=== PATIENT | female | born 1975 | race African-American/Black ===

== ENCOUNTER 2018-09-08 10:08 | Inpatient (IN) | payer OTHER ==
[2018-09-08 10:15] VITALS: BMI 24.9
--- NOTE | 2018-09-08 12:55 | HP ---
CIWA Score Nausea/Vomitin Muscle Tremors: 2 Anxiety: 2 Agitation: 2 Paroxysmal Sweats: 1-Minimal Palms Moist Orientation: 0-Oriented Tacttile Disturbances: 1-Very Mild Itch/Numbness Auditory Disturbances: 1-Very Mild Visual Disturbances: 1-Very Mild Sensitivity Headache: 2-Mild CIWA-Ar Total Score: 14 - Admission Criteria OASAS Guidelines: Admission for Medically Managed Detox: Requires at least one of the followin. CIWA greater than 12 2. Seizures within the past 24 hours 3. Delirium tremens within the past 24 hours 4. Hallucinations within the past 24 hours 5. Acute intervention needed for co occurring medical disorder 6. Acute intervention needed for co occurring psychiatric disorder 7. Severe withdrawal that cannot be handled at a lower level of care (continued vomiting, continued diarrhea, abnormal vital signs) requiring intravenous medication and/or fluids 8. Patient presents the following: CIWA greater than 12 Admission Criteria Met: Admission criteria met Admission ROS BHS - HPI Chief Complaint: i need help to stop drinking alcohol Allergies/Adverse Reactions: Allergies Allergy/AdvReac Type Severity Reaction Status Date / Time No Known Allergies Allergy Verified 09/08/18 11:40 History of Present Illness: this 42 years old female with alcohol dependence,seeking detox,seen in [place] last night last detox 01/10/17 to 01/14/18 syncope alcohol related nicotine dependence bipolar disorder ,schizoaffective disorder longest sobriety 7 months Exam Limitations: No Limitations - Ebola screening Have you traveled outside of the country in the last 21 days: No Have you had contact with anyone from an Ebola affected area: No Have you been sick,other than usual withdrawal symptoms: No - Review of Systems Constitutional: Loss of Appetite, Malaise, Night Sweats, Changes in sleep, Weakness EENT: reports: Nose Congestion Respiratory: reports: No Symptoms reported Cardiac: reports: No Symptoms Reported GI: reports: Nausea, Vomiting, Abdominal cramping : reports: No Symptoms Reported Musculoskeletal: reports: Back Pain, Muscle Pain Integumentary: reports: Dryness Neuro: reports: Headache, Tremors Endocrine: reports: No Symptoms Reported Hematology: reports: No Symptoms Reported Psychiatric: reports: No Sypmtoms Reported, Judgement Intact, Mood/Affect Appropiate, Orientated x3 (bipolar disorder) Patient History - Patient Medical History Hx Anemia: No Hx Asthma: No Hx Chronic Obstructive Pulmonary Disease (COPD): No Hx Cancer: No Hx Cardiac Disorders: No Hx Congestive Heart Failure: No Hx Hypertension: No Hx Hypercholesterolemia: No Hx Pacemaker: No HX Cerebrovascular Accident: No Hx Seizures: No Hx Dementia: No Hx Diabetes: No Hx Gastrointestinal Disorders: No Hx Liver Disease: No Hx Genitourinary Disorders: No Hx Sexually Transmitted Disorders: No Hx Renal Disease (ESRD): No Hx Thyroid Disease: No Hx Human Immunodeficiency Virus (HIV): No Hx Hepatitis C: No Hx Depression: Yes Hx Suicide Attempt: Yes (Jumped out of [place] when "young") Hx Bipolar Disorder: Yes (schizo-affective) Hx Schizophrenia: Yes (?) Other Medical History: no sucidal,no homicidal - Patient Surgical History Past Surgical History: No Hx Neurologic Surgery: No Hx Cataract Extraction: No Hx Cardiac Surgery: No Hx Lung Surgery: No Hx Breast Surgery: No Hx Breast Biopsy: No Hx Abdominal Surgery: Yes (s/p lap gastric by pass in 2005) Hx Appendectomy: No Hx Cholecystectomy: No Hx Genitourinary Surgery: No Hx Section: Yes (in 2006) Hx Orthopedic Surgery: No Anesthesia Reaction: No - PPD History Previous Implant?: Yes Documented Results: Negative w/o proof Implanted On Prior [facility] Admission?: Yes Date: 09/14/16 Results: 0 mm PPD to be Administered?: Yes - Reproductive History Last Menstrual Period: 08/15/18 Patient : No - Smoking Cessation Smoking history: Current every day smoker Have you smoked in the past 12 months: Yes Aproximately how many cigarettes per day: 6 Cigars Per Day: 0 Hx Chewing Tobacco Use: No Initiated information on smoking cessation: Yes 'Breaking Loose' booklet given: 09/08/18 - Substance & Tx. History Hx Alcohol Use: Yes Hx Substance Use: Yes Substance Use Type: Alcohol, Cocaine Hx Substance Use Treatment: Yes ([facility] 01/10/17 to 01/14/17) - Substances Abused Alcohol Route: Oral Frequency: Daily Amount used: 1 pint Age of first use: 33 Date of Last Use: 09/07/18 Cocaine Route: Smoking Frequency: 1-3 times last 30 days Amount used: $100 Age of first use: 42 Date of Last Use: 09/01/18 Family Disease History - Family Disease History Family Disease History: Diabetes: Grandparent (HTN), Heart Disease: Grandparent , Mother (compulsive gambler,HTN), Sister (DRUG AND ALCOHOL,HTN), Other: Father (DRUG AND ALCOHOL,), Mother, Sister Admission Physical Exam [facility] - Vital Signs Vital Signs: Vital Signs - 24 hr 09/08/18 10:12 Temperature 97.0 F L Pulse Rate 124 H Respiratory 19 Rate Blood Pressure 104/56 L - Physical General Appearance: Yes: Moderate Distress, Tremorous, Irritable, Sweating, Anxious HEENTM: Yes: Hearing grossly Normal, Normal ENT Inspection, TAMMY, Pharynx Normal Respiratory: Yes: Lungs Clear, Normal Breath Sounds, No Respiratory Distress Neck: Yes: Within Normal Limits, Supple, Trachea in good position Breast: Yes: Within Normal Limits Cardiology: Yes: Within Normal Limits, Regular Rhythm, Regular Rate, S1, S2 Abdominal: Yes: Within Normal Limits, Normal Bowel Sounds, Non Tender, Soft Genitourinary: Yes: Within Normal Limits Back: Yes: Muscle Spasm Musculoskeletal: Yes: Back pain, Joint Stiffness, Muscle Pain Extremities: Yes: Tremors Neurological: Yes: orthopedic nurse II-XII NML intact, Alert, Motor Strength 5/5 Integumentary: Yes: Dry Lymphatic: Yes: Within Normal Limits - Diagnostic (1) Syncope Current Visit: No Status: Acute (2) Alcohol dependence with uncomplicated withdrawal Current Visit: No Status: Chronic (3) S/P gastric bypass Current Visit: No Status: Chronic (4) Schizophrenia Current Visit: No Status: Chronic Qualifiers: Cleared for Admission [facility] - Detox or Rehab [facility] Level of Care: Medically Managed Detox Regimen/Protocol: Librium [facility] Breath Alcohol Content Breath Alcohol Content: 0 Urine Pregancy Test - Result Urine Test Results: Negative- NO Line Present Urine Drug Screen - Results Drug Screen Negative: No Urine Drug Screen Results: GIO-Cocaine, BZO-Benzodiazepines
[2018-09-08] MEDS ORDERED: chlordiazePOXIDE HCL 25 MG CAPSULE PO PRN (14:22)
[2018-09-08] MEDS ORDERED: ACETAMINOPHEN 325 MG TABLET (FP) PO PRN (14:22)
[2018-09-08] MEDS ORDERED: LOPERAMIDE HCL 2 MG CAPSULE PO PRN (14:22)
[2018-09-08] MEDS ORDERED: guaiFENesin/D-METHORPHAN HB 10 ML UNIT-DOSE CUPS PO PRN (14:22)
[2018-09-08] MEDS ORDERED: P-EPHED 60MG/TRIPROLIDI 2.5MG TABLET PO PRN (14:22)
[2018-09-08] MEDS ORDERED: MENTHOL/PHENOL 1 EACH UD MM PRN (14:22)
[2018-09-08] MEDS ORDERED: MAG HYDROX/AL HYDROX/SIMETH 30 ML UNIT-DOSE CUP PO PRN (14:22)
[2018-09-08] MEDS ORDERED: IBUPROFEN 400 MG TABLET (FP) PO PRN (14:22)
[2018-09-08] MEDS ORDERED: MAGNESIUM CITRATE 300 ML BOTTLE PO PRN (14:22)
[2018-09-08] MEDS ORDERED: MAGNESIUM HYDROX 2400MG/30ML ORAL SUSPENSION 30 ML CUP PO PRN (14:22)
--- NOTE | 2018-09-08 14:32 | CONSULT ---
[facility] Psychiatric Consult - Data Date of interview: 09/08/18 Admission source: [facility] Identifying data: This is a 42 years old female, single, mother of one, domiciled, on SSD support, with history of Schizophrenia, psychiatroc hospitalization history,, with alcoho, Cocaine, Opioids dependence,seeking detox,reporoting withdrawal history, [place] for [place].Reports last detox on 01/10/17 to 01/14/18 Substance Abuse History: Smoking history: Current every day smoker. Have you smoked in the past 12 months: Yes. Aproximately how many cigarettes per day: 6. Cigars Per Day: 0. Hx Chewing Tobacco Use: No. Initiated information on smoking cessation: Yes. 'Breaking Loose' booklet given: 09/08/18. - Substance & Tx. History. Hx Alcohol Use: Yes. Hx Substance Use: Yes. Substance Use Type : Alcohol, Cocaine. Hx Substance Use Treatment: Yes ([facility] 01/10/17 to 01/14/17) . - Substances Abused. Alcohol. Route: Oral. Frequency: Daily. Amount used: 1 pint. Age of first use: 33. Date of Last Use: 09/07/18. Cocaine. Route: Smoking. Frequency: 1-3 times last 30 days. Amount used: $100. Age of first use: 42. Date of Last Use: 09/01/18 Medical History: Syncope, Gastric bypass history, Psychiatric History: Patient reports history of Schizophrenia, reports most recent psychiatric admission at [facility] month ago for safety, reports taking prior to admission: Seroqiel 100mg poqd, 200mg po qhs. Trazodone 150mg po qhs. As per computer has a history of suicidal attempt, [place] on about 25-30 years ago, denies suicidal ,homicidal ideation at this time. Physical/Sexual Abuse/Trauma History: Denies Additional Comment: Seroqiel 100mg poqd, 200mg po qhs. Trazodone 150mg po qhs Mental Status Exam - Mental Status Exam Alert and Oriented to: Person Cognitive Function: Impaired Patient Appearance: Unkempt Mood: Suspicious Affect: Flat, Constricted Patient Behavior: Cooperative Speech Pattern: Delayed Voice Loudness: Mildly Soft/Quiet Thought Process: Circumstantial Thought Disorder: Being Controlled Hallucinations: Denies Suicidal Ideation: Denies Homicidal Ideation: Denies Insight/Judgement: Fair Sleep: Difficulty falling asleep Appetite: Weight gain Muscle strength/Tone: Mild Hypotonicity Gait/Station: Shuffling Additional Comments: Seroqiel 100mg poqd, 200mg po qhs. Trazodone 150mg po qhs Psychiatric Findings - Problem List ([employer] 1, 2,3) (1) Syncope Current Visit: No Status: Acute (2) Alcohol dependence Current Visit: No Status: Chronic (3) Alcohol dependence with uncomplicated withdrawal Current Visit: No Status: Chronic (4) Cocaine dependence Current Visit: No Status: Chronic (5) Heroin dependence Current Visit: No Status: Chronic (6) Nicotine dependence Current Visit: No Status: Chronic Qualifiers: Nicotine product type: cigarettes Substance use status: uncomplicated Qualified Code(s): F17.210 - Nicotine dependence, cigarettes, uncomplicated (7) S/P gastric bypass Current Visit: No Status: Chronic (8) Schizoaffective disorder Current Visit: No Status: Chronic (9) Schizophrenia Current Visit: No Status: Chronic Qualifiers: - Initial Treatment Plan Initial Treatment Plan: Seroqiel 100mg poqd, 200mg po qhs. Trazodone 150mg po qhs. Seroquel 100mg po stat
[2018-09-08] MEDS: QUEtiapine FUMARATE 100 MG TABLET (FP) PO SCH (15:46)
[2018-09-08] MEDS: chlordiazePOXIDE HCL 25 MG CAPSULE PO SCH ×2 (18:03→22:37)
[2018-09-08 18:31] LABS: URINE APPEARANCE CLEAR; URINE BILIRUBIN NEGATIVE (<2.0 mg/dL); URINE COLOR LTYELLOW; URINE GLUCOSE (UA) NEGATIVE (NEGATIVE); URINE KETONE NEGATIVE (NEGATIVE); URINE LEUK ESTERASE NEGATIVE (NEGATIVE); URINE NITRITE NEGATIVE (NEGATIVE); URINE PROTEIN NEGATIVE (NEGATIVE); URINE UROBILINOGEN NEGATIVE mg/dL (0.2-1.0)
[2018-09-08] MEDS ORDERED: MELATONIN 5 MG TABLETS PO PRN (22:00)
[2018-09-08] MEDS: THIAMINE HCL 100 MG TABLET (FP) PO SCH (22:36)
[2018-09-08] MEDS: QUEtiapine FUMARATE 200 MG TABLET PO SCH (22:37)
[2018-09-09] MEDS: chlordiazePOXIDE HCL 25 MG CAPSULE PO SCH ×4 (05:51→23:08)
[2018-09-09 10:14] LABS: HEMATOCRIT 26.9 % (32.4-45.2); MCH 20.9 pg (25.7-33.7); MCHC 29.6 g/dl (32.0-36.0); MEAN CELL VOLUME 70.7 fl (80-96); MEAN PLT VOLUME 8.4 fl (7.5-11.1); PLATELET COUNT 124 K/MM3 (134-434); RBC 3.81 M/mm3 (3.60-5.2); RDW 22.8 % (11.6-15.6); WHITE BLOOD COUNT 2.8 K/mm3 (4.0-10.0)
--- NOTE | 2018-09-09 10:56 | PN ---
S CIWA - CIWA Score Nausea/Vomitin-No Nausea/No Vomiting Muscle Tremors: 4-Moderate,w/Arms Extend Anxiety: 3 Agitation: 3 Paroxysmal Sweats: 3 Orientation: 0-Oriented Tacttile Disturbances: 0-None Auditory Disturbances: 0-None Visual Disturbances: 0-None Headache: 0-None Present CIWA-Ar Total Score: 13 BHS Progress Note (SOAP) Subjective: anxiety sweats shakes irritable interrupted sleep Objective: 09/09/18 10:54 Vital Signs Temperature 97.9 F 09/09/18 09:27 Pulse Rate 114 H 09/09/18 09:27 Respiratory Rate 18 09/09/18 09:27 Blood Pressure 117/74 09/09/18 09:27 O2 Sat by Pulse Oximetry (%) Laboratory Tests 09/08/18 09/09/18 09/09/18 15:48 07:00 07:00 WBC 2.8 L RBC 3.81 Hgb 8.0 L Hct 26.9 L D MCV 70.7 L MCH 20.9 L D MCHC 29.6 L RDW 22.8 H Plt Count 124 L D MPV 8.4 Urine Color Ltyellow Urine Appearance Clear Urine pH 5.0 Ur Specific [place] 1.018 Urine Protein Negative Urine Glucose (UA) Negative Urine Ketones Negative Urine Blood Negative Urine Nitrite Negative Urine Bilirubin Negative Urine Urobilinogen Negative Ur Leukocyte Esterase Negative RPR Titer Nonreactive low H:H; will start iron supplements rest of labs pending aaox3 ambulating no acute distress Assessment: 09/09/18 10:55 withdrawal sx Plan: continue detox increase fluids repeat labs in two days.
[2018-09-09] MEDS: PRENATAL VITAMINS W/ FOLIC ACID TABLET (FP) PO SCH (11:09)
[2018-09-09] MEDS: QUEtiapine FUMARATE 100 MG TABLET (FP) PO SCH (11:09)
[2018-09-09] MEDS: hydrOXYzine PAMOATE 25 MG CAPSULE (FP) PO PRN ×2 (11:12→23:08)
[2018-09-09 11:14] LABS: ALBUMIN 2.8 g/dl (3.4-5.0); ALK PHOS 69 U/L (45-117); ANION GAP 10 MMOL/L (8-16); BILIRUBIN,TOTAL 0.2 mg/dL (0.2-1); BLOOD UREA NITROGEN 11 mg/dL (7-18); CALCIUM 7.9 mg/dL (8.5-10.1); CHLORIDE 101 mmol/L (98-107); CO2 27 mmol/L (21-32); CREATININE 0.6 mg/dL (0.55-1.3); GLUCOSE,RANDOM 146 mg/dL (74-106); POTASSIUM 3.7 mmol/L (3.5-5.1); SGOT/AST 15 U/L (15-37); SGPT/ALT 18 U/L (13-61); SODIUM 138 mmol/L (136-145); TOT PROT 6.6 g/dl (6.4-8.2)
[2018-09-09] MEDS: FERROUS SO4 325 MG TABLET (FP) PO SCH ×2 (11:35→17:42)
--- NOTE | 2018-09-09 14:53 | EKG ---
Test Reason : Blood Pressure : / mmHG Vent. Rate : 108 BPM Atrial Rate : 108 BPM P-R Int : 126 ms QRS Dur : 068 ms QT Int : 348 ms P-R-T Axes : 050 021 043 degrees QTc Int : 466 ms SINUS TACHYCARDIA POSSIBLE LEFT ATRIAL ENLARGEMENT NONSPECIFIC T WAVE ABNORMALITY POOR R WAVE PROGRESSION ABNORMAL ECG Confirmed by MALENA JARRETT MD ([id number]) on 09/09/2018 2:52:47 PM Referred By: Confirmed By:MALENA JARRETT MD
[2018-09-09] MEDS: THIAMINE HCL 100 MG TABLET (FP) PO SCH (23:08)
[2018-09-09] MEDS: QUEtiapine FUMARATE 200 MG TABLET PO SCH (23:08)
[2018-09-10] MEDS: chlordiazePOXIDE HCL 25 MG CAPSULE PO SCH ×2 (06:00→10:56)
[2018-09-10] MEDS: FERROUS SO4 325 MG TABLET (FP) PO SCH ×3 (07:06→17:34)
--- NOTE | 2018-09-10 10:44 | PN ---
[facility] CIWA - CIWA Score Nausea/Vomitin-Mild Nausea/No Vomiting Muscle Tremors: None Anxiety: 4-Mod. Anxious/Guarded Agitation: 4-Moderately Restless Paroxysmal Sweats: No Perspiration Orientation: 0-Oriented Tacttile Disturbances: 0-None Auditory Disturbances: 0-None Visual Disturbances: 0-None Headache: 0-None Present CIWA-Ar Total Score: 9 BHS Progress Note (SOAP) Subjective: PATIENT ANXIOUS, IRRITATED AND MILD NAUSEA. Objective: 09/10/18 10:40 Laboratory Tests 09/08/18 09/09/18 09/09/18 15:48 07:00 07:00 WBC 2.8 L RBC 3.81 Hgb 8.0 L Hct 26.9 L D MCV 70.7 L MCH 20.9 L D MCHC 29.6 L RDW 22.8 H Plt Count 124 L D MPV 8.4 Sodium 138 Potassium 3.7 Chloride 101 Carbon Dioxide 27 Anion Gap 10 BUN 11 Creatinine 0.6 Creat Clearance w eGFR > 60 Random Glucose 146 H Calcium 7.9 L Total Bilirubin 0.2 AST 15 ALT 18 Alkaline Phosphatase 69 Total Protein 6.6 Albumin 2.8 L Urine Color Ltyellow Urine Appearance Clear Urine pH 5.0 Ur Specific [place] 1.018 Urine Protein Negative Urine Glucose (UA) Negative Urine Ketones Negative Urine Blood Negative Urine Nitrite Negative Urine Bilirubin Negative Urine Urobilinogen Negative Ur Leukocyte Esterase Negative RPR Titer 09/09/18 07:00 WBC RBC Hgb Hct MCV MCH MCHC RDW Plt Count MPV Sodium Potassium Chloride Carbon Dioxide Anion Gap BUN Creatinine Creat Clearance w eGFR Random Glucose Calcium Total Bilirubin AST ALT Alkaline Phosphatase Total Protein Albumin Urine Color Urine Appearance Urine pH Ur Specific [place] Urine Protein Urine Glucose (UA) Urine Ketones Urine Blood Urine Nitrite Urine Bilirubin Urine Urobilinogen Ur Leukocyte Esterase RPR Titer Nonreactive Vital Signs Temperature 98.2 F 09/10/18 09:46 Pulse Rate 76 09/10/18 09:46 Respiratory Rate 16 09/10/18 09:46 Blood Pressure 110/69 09/10/18 09:46 O2 Sat by Pulse Oximetry (%) PE: SKIN WARM AND DRY ALERT AND ORIENTED X 3 ANXIOUS, IRRITATED DURING EVALUATION Assessment: 09/10/18 10:42 WITHDRAWAL SX Plan: CONTINUE DETOX ENCOURAGE ORAL FLUIDS CONTINUE TO MONITOR CLINICALLY
[2018-09-10] MEDS: PRENATAL VITAMINS W/ FOLIC ACID TABLET (FP) PO SCH (10:56)
[2018-09-10] MEDS: QUEtiapine FUMARATE 100 MG TABLET (FP) PO SCH (10:56)
[2018-09-10] MEDS: chlordiazePOXIDE 5 MG CAPSULE PO SCH ×2 (17:01→22:09)
[2018-09-10] MEDS: QUEtiapine FUMARATE 200 MG TABLET PO SCH (22:07)
[2018-09-10] MEDS: THIAMINE HCL 100 MG TABLET (FP) PO SCH (22:07)
[2018-09-11] MEDS: chlordiazePOXIDE 5 MG CAPSULE PO SCH ×2 (06:00→10:26)
[2018-09-11] MEDS: FERROUS SO4 325 MG TABLET (FP) PO SCH ×3 (07:41→17:09)
[2018-09-11] MEDS: QUEtiapine FUMARATE 100 MG TABLET (FP) PO SCH (10:25)
[2018-09-11] MEDS: PRENATAL VITAMINS W/ FOLIC ACID TABLET (FP) PO SCH (10:25)
[2018-09-11 10:59] LABS: BASO % 0.3 % (0-2.0); EOS % 1.2 % (0-4.5); HEMATOCRIT 27.2 % (32.4-45.2); LYMPH % 25.5 % (8-40); MCHC 29.4 g/dl (32.0-36.0); MEAN CELL VOLUME 71.3 fl (80-96); MEAN PLT VOLUME 8.3 fl (7.5-11.1); MONO % 11.9 % (3.8-10.2); NEUT % 61.1 % (42.8-82.8); PLATELET COUNT 182 K/MM3 (134-434); RBC 3.81 M/mm3 (3.60-5.2); RDW 23.2 % (11.6-15.6); WHITE BLOOD COUNT 3.8 K/mm3 (4.0-10.0)
--- NOTE | 2018-09-11 11:36 | PN ---
BHS Progress Note (SOAP) Subjective: feeling better mild gi distress tremor sweat sleep better at night Objective: 09/11/18 11:34 Vital Signs Temperature 97.7 F 09/11/18 09:31 Pulse Rate 101 H 09/11/18 09:31 Respiratory Rate 16 09/11/18 09:31 Blood Pressure 99/58 L 09/11/18 09:31 O2 Sat by Pulse Oximetry (%) Laboratory Last Values WBC 2.8 K/mm3 (4.0-10.0) L 09/09/18 07:00 RBC 3.81 M/mm3 (3.60-5.2) 09/09/18 07:00 Hgb 8.0 GM/dL (10.7-15.3) L 09/09/18 07:00 Hct 26.9 % (32.4-45.2) L D 09/09/18 07:00 MCV 70.7 fl (80-96) L 09/09/18 07:00 MCH 20.9 pg (25.7-33.7) L D 09/09/18 07:00 MCHC 29.6 g/dl (32.0-36.0) L 09/09/18 07:00 RDW 22.8 % (11.6-15.6) H 09/09/18 07:00 Plt Count 124 K/MM3 (134-434) L D 09/09/18 07:00 MPV 8.4 fl (7.5-11.1) 09/09/18 07:00 Sodium 138 mmol/L (136-145) 09/09/18 07:00 Potassium 3.7 mmol/L (3.5-5.1) 09/09/18 07:00 Chloride 101 mmol/L (98-107) 09/09/18 07:00 Carbon Dioxide 27 mmol/L (21-32) 09/09/18 07:00 Anion Gap 10 MMOL/L (8-16) 09/09/18 07:00 BUN 11 mg/dL (7-18) 09/09/18 07:00 Creatinine 0.6 mg/dL (0.55-1.3) 09/09/18 07:00 Creat Clearance w eGFR > 60 (>60) 09/09/18 07:00 Random Glucose 146 mg/dL (74-106) H 09/09/18 07:00 Calcium 7.9 mg/dL (8.5-10.1) L 09/09/18 07:00 Total Bilirubin 0.2 mg/dL (0.2-1) 09/09/18 07:00 AST 15 U/L (15-37) 09/09/18 07:00 ALT 18 U/L (13-61) 09/09/18 07:00 Alkaline Phosphatase 69 U/L (45-117) 09/09/18 07:00 Total Protein 6.6 g/dl (6.4-8.2) 09/09/18 07:00 Albumin 2.8 g/dl (3.4-5.0) L 09/09/18 07:00 Urine Color Ltyellow 09/08/18 15:48 Urine Appearance Clear 09/08/18 15:48 Urine pH 5.0 (5.0-8.0) 09/08/18 15:48 Ur Specific [place] 1.018 (1.010-1.035) 09/08/18 15:48 Urine Protein Negative (NEGATIVE) 09/08/18 15:48 Urine Glucose (UA) Negative (NEGATIVE) 09/08/18 15:48 Urine Ketones Negative (NEGATIVE) 09/08/18 15:48 Urine Blood Negative (NEGATIVE) 09/08/18 15:48 Urine Nitrite Negative (NEGATIVE) 09/08/18 15:48 Urine Bilirubin Negative (<2.0 mg/dL) 09/08/18 15:48 Urine Urobilinogen Negative mg/dL (0.2-1.0) 09/08/18 15:48 Ur Leukocyte Esterase Negative (NEGATIVE) 09/08/18 15:48 RPR Titer Nonreactive (NONREACTIVE) 09/09/18 07:00 lab noted cbc pending 09/11/18 11:35 continue iron supplement 09/11/18 11:36 Assessment: 09/11/18 11:36 mild withdrawal sx 09/11/18 11:38 wbc repeat pending anemia Plan: medically supervised detox discontinue motrin begin zantac wants to see a psychiatrist for trazodone
--- NOTE | 2018-09-11 12:02 | PN ---
[facility] Progress Note Note: Psychiatrist concrete plant laborer notes: As per nursing report patient started on \ Trazodone 150mg po qhs
[2018-09-11] MEDS: RANITIDINE HCL 150 MG TABLET (FP) PO SCH ×2 (13:25→22:04)
[2018-09-11 14:29] LABS: ANISOCYTOSIS 2+
[2018-09-11 14:30] LABS: OVALOCYTE 1+; PLATELET ESTIMATE ADEQUATE; TEAR DROP CELLS 1+
[2018-09-11] MEDS: chlordiazePOXIDE HCL 10 MG CAPSULE PO SCH ×2 (17:08→22:04)
[2018-09-11] MEDS ORDERED: traZODone HCL 100 MG TABLET (FP) PO SCH (22:00)
[2018-09-11] MEDS: QUEtiapine FUMARATE 200 MG TABLET PO SCH (22:04)
[2018-09-11] MEDS: THIAMINE HCL 100 MG TABLET (FP) PO SCH (22:04)
[2018-09-12] MEDS: chlordiazePOXIDE HCL 10 MG CAPSULE PO SCH ×2 (06:00→10:15)
[2018-09-12] MEDS: FERROUS SO4 325 MG TABLET (FP) PO SCH (07:08)
[2018-09-12 09:29] VITALS: BP 111/57; PULSE 108; TEMP 96.3
[2018-09-12] MEDS: PRENATAL VITAMINS W/ FOLIC ACID TABLET (FP) PO SCH (10:15)
[2018-09-12] MEDS: QUEtiapine FUMARATE 100 MG TABLET (FP) PO SCH (10:15)
[2018-09-12] MEDS: RANITIDINE HCL 150 MG TABLET (FP) PO SCH (10:15)
--- NOTE | 2018-09-12 10:23 | DS ---
[facility] Detox Discharge Summary Admission Date: 09/08/18 Discharge Date: 09/12/18 - History Present History: Alcohol Dependence Additional Comments: 42 years old female admitted on 09/818 for alcohol withdrawal sx completed detox regimen tolerated well denies denies alcohol withdrawal sx alert oriented x 3 no acute distress aftercare [facility] - Physical Exam Results Vital Signs: Vital Signs Temperature 96.3 F L 09/12/18 09:27 Pulse Rate 108 H 09/12/18 09:27 Respiratory Rate 18 09/12/18 09:27 Blood Pressure 111/57 L 09/12/18 09:27 O2 Sat by Pulse Oximetry (%) Pertinent Admission Physical Exam Findings: alcohol withdrawal sx Vital Signs Temperature 96.3 F L 09/12/18 09:27 Pulse Rate 108 H 09/12/18 09:27 Respiratory Rate 18 09/12/18 09:27 Blood Pressure 111/57 L 09/12/18 09:27 O2 Sat by Pulse Oximetry (%) Laboratory Last Values WBC 3.8 K/mm3 (4.0-10.0) L 09/11/18 07:30 RBC 3.81 M/mm3 (3.60-5.2) 09/11/18 07:30 Hgb 8.0 GM/dL (10.7-15.3) L 09/11/18 07:30 Hct 27.2 % (32.4-45.2) L 09/11/18 07:30 MCV 71.3 fl (80-96) L 09/11/18 07:30 MCH 21.0 pg (25.7-33.7) L 09/11/18 07:30 MCHC 29.4 g/dl (32.0-36.0) L 09/11/18 07:30 RDW 23.2 % (11.6-15.6) H 09/11/18 07:30 Plt Count 182 K/MM3 (134-434) D 09/11/18 07:30 MPV 8.3 fl (7.5-11.1) 09/11/18 07:30 Absolute Neuts (auto) 2.3 K/mm3 (1.5-8.0) 09/11/18 07:30 Neutrophils % 61.1 % (42.8-82.8) 09/11/18 07:30 Lymphocytes % 25.5 % (8-40) 09/11/18 07:30 Monocytes % 11.9 % (3.8-10.2) H 09/11/18 07:30 Eosinophils % 1.2 % (0-4.5) 09/11/18 07:30 Basophils % 0.3 % (0-2.0) 09/11/18 07:30 Nucleated RBC % 0 % (0-0) 09/11/18 07:30 Hypochromia 1+ 09/11/18 07:30 Platelet Estimate Adequate 09/11/18 07:30 Platelet Comment Large platelets 09/11/18 07:30 Polychromasia 1+ 09/11/18 07:30 Anisocytosis 2+ 09/11/18 07:30 Tear Drop Cells 1+ 09/11/18 07:30 Ovalocytes 1+ 09/11/18 07:30 Sodium 138 mmol/L (136-145) 09/09/18 07:00 Potassium 3.7 mmol/L (3.5-5.1) 09/09/18 07:00 Chloride 101 mmol/L (98-107) 09/09/18 07:00 Carbon Dioxide 27 mmol/L (21-32) 09/09/18 07:00 Anion Gap 10 MMOL/L (8-16) 09/09/18 07:00 BUN 11 mg/dL (7-18) 09/09/18 07:00 Creatinine 0.6 mg/dL (0.55-1.3) 09/09/18 07:00 Creat Clearance w eGFR > 60 (>60) 09/09/18 07:00 Random Glucose 146 mg/dL (74-106) H 09/09/18 07:00 Calcium 7.9 mg/dL (8.5-10.1) L 09/09/18 07:00 Total Bilirubin 0.2 mg/dL (0.2-1) 09/09/18 07:00 AST 15 U/L (15-37) 09/09/18 07:00 ALT 18 U/L (13-61) 09/09/18 07:00 Alkaline Phosphatase 69 U/L (45-117) 09/09/18 07:00 Total Protein 6.6 g/dl (6.4-8.2) 09/09/18 07:00 Albumin 2.8 g/dl (3.4-5.0) L 09/09/18 07:00 Urine Color Ltyellow 09/08/18 15:48 Urine Appearance Clear 09/08/18 15:48 Urine pH 5.0 (5.0-8.0) 09/08/18 15:48 Ur Specific [place] 1.018 (1.010-1.035) 09/08/18 15:48 Urine Protein Negative (NEGATIVE) 09/08/18 15:48 Urine Glucose (UA) Negative (NEGATIVE) 09/08/18 15:48 Urine Ketones Negative (NEGATIVE) 09/08/18 15:48 Urine Blood Negative (NEGATIVE) 09/08/18 15:48 Urine Nitrite Negative (NEGATIVE) 09/08/18 15:48 Urine Bilirubin Negative (<2.0 mg/dL) 09/08/18 15:48 Urine Urobilinogen Negative mg/dL (0.2-1.0) 09/08/18 15:48 Ur Leukocyte Esterase Negative (NEGATIVE) 09/08/18 15:48 RPR Titer Nonreactive (NONREACTIVE) 09/09/18 07:00 lab noted continue iron and cbc monitoring at [facility] Course: Detox Protocol Followed, Detoxed Safely, Responded well, Discharged Condition Good, Rehab Referral Accepted Patient has Accepted a Rehab Referral to: [facility] Discharge Medications: Ambulatory Orders Quetiapine Fumarate [Seroquel -] 200 mg PO HS #30 tab 09/08/18 traZODone HCL [Desyrel -] 150 mg PO HS #30 tablet 09/08/18 - Diagnosis (1) Alcohol dependence with uncomplicated withdrawal Status: Acute (2) Nicotine dependence Status: Acute Qualifiers: Nicotine product type: cigarettes Substance use status: in withdrawal Qualified Code(s): F17.213 - Nicotine dependence, cigarettes, with withdrawal (3) S/P gastric bypass Status: Chronic (4) Schizoaffective disorder Status: Suspected Qualifiers: Schizoaffective disorder type: unspecified Qualified Code(s): F25.9 - Schizoaffective disorder, unspecified - AMA Did Patient Leave Against Medical Advice: No
== END 2018-09-12 10:30 | disposition home or self-care (01) | DRG 773 ==
LOC: YASAS 10:08 → Y6N 13:04
PROC: HZ2ZZZZ Detoxification Services for Substance Abuse Treatment (ICD-10-PCS; principal; 2018-09-08)
DX: F11.20 Opioid dependence, uncomplicated (principal); F10.230 Alcohol dependence with withdrawal, uncomplicated; F14.20 Cocaine dependence, uncomplicated; F17.213 Nicotine dependence, cigarettes, with withdrawal; F25.9 Schizoaffective disorder, unspecified; R55 Syncope and collapse; F32.9 Major depressive disorder, single episode, unspecified; Z98.84 Bariatric surgery status; Z91.5 Personal history of self-harm
CPT/HCPCS: 36415; 80053; 81003; 85025; 85027; 86593; 93005; 93010